=== PATIENT | female | born 1985 | race Asian ===

== ENCOUNTER 2016-05-18 15:40 | Emergency (ER) | payer OTHER ==
[~2016-05-18] VITALS: Ht 162.6 cm; Wt 74.4 kg
[~2016-05-18 15:40] MED LIST: BENADRYL ALLERG25 MG PO; BENADRYL50 MG PO; BUPROPION XL150 MG PO; GABAPENTIN100 MG PO; MILK OF MAGN PO; MOTRIN600 MG PO; PREDNISONE10 MG PO; PROAIR HFA8.5 GM IH; QUETIAPINE FUMA50 MG PO; ZITHROMAX Z-PA250 MG PO; ZOFRAN4 MG PO
[2016-05-18] MEDS ORDERED: PREDNISONE10 M1 PO (17:02)
[2016-05-18] MEDS ORDERED: VENTOLIN HFA18 GM IH (17:02)
[2016-05-18] MEDS ORDERED: TESSALON PERLE100 MG PO (17:02)
[2016-05-18 17:15] VITALS: BP 126/82
== END 2016-05-18 17:16 | disposition home or self-care (01) ==
LOC: EXP 15:40 → EME 15:40 → EXP 17:16
DX: J20.9 Acute bronchitis, unspecified (principal); R06.2 Wheezing; F17.200 Nicotine dependence, unspecified, uncomplicated; Z88.0 Allergy status to penicillin
CPT/HCPCS: 94640; 99281; 99283

== ENCOUNTER 2017-09-15 06:51 | Emergency (ER) | payer OTHER ==
[~2017-09-15] VITALS: Ht 162.6 cm; Wt 72.5 kg
[~2017-09-15 06:51] MED LIST changes: +PREDNISONE10 M1 PO; +TESSALON PERLE100 MG PO; +VENTOLIN HFA18 GM IH
[2017-09-15] MEDS ORDERED: KETOROLAC TROME10 MG PO (07:17)
[2017-09-15 07:51] LABS: HEMATOCRIT 37.4 % (36.0-46.0); HEMOGLOBIN 13.1 G/DL (11.9-15.5); MCH 30.8 PG (29.0-34.0); PLATELET COUNT 291 K/uL (156-360); RBC DIS.WIDTH-CV 11.7 % (11.8-14.6); RBC DIS.WIDTH-SD 37.5 % (39-53); RED BLOOD COUNT 4.25 M/uL (3.80-5.20); WHITE BLOOD COUNT 8.6 K/uL (4.1-10.2)
[2017-09-15 07:58] LABS: APPEARANCE CLEAR ((CLEAR)); BILIRUBIN NEGATIVE; BLOOD NEGATIVE; COLOR YELLOW ((YELLOW)); GLUCOSE (STRIP) NEGATIVE; KETONES NEGATIVE; LEUKOCYTES NEGATIVE; NITRITE NEGATIVE; PROTEIN (STRIP) NEGATIVE; SPECIFIC GRAVITY 1.024 (1.000-1.030); UCUL ADDED? NO; UROBILINOGEN 0.2 MG/DL (0.2-1.0)
[2017-09-15 07:59] LABS: ALBUMIN 4.3 g/dL (3.2-4.8); CHLORIDE 107 mEq/L (99-109); POTASSIUM 3.7 mEq/L (3.7-5.4); SODIUM 139 mEq/L (136-147)
[2017-09-15 08:01] LABS: GLUCOSE 98 mg/dL (70-99); TOTAL PROTEIN 6.9 g/dL (6.4-8.3)
[2017-09-15 08:03] LABS: TOTAL BILIRUBIN 0.4 mg/dL (0.0-1.0)
[2017-09-15 08:05] LABS: ALKALINE PHOSPHATASE 106 IU/L (3-129); CREATININE 0.8 mg/dL (0.6-1.3); GFR ESTIMATE (CALCULATED) > 59 mL/min/
[2017-09-15 08:06] LABS: UREA NITROGEN (BUN) 12 mg/dL (9-23)
[2017-09-15 08:07] LABS: AST (GOT) 15 IU/L (2-34)
[2017-09-15 08:08] LABS: ALT (GPT) 19 IU/L (3-49); LIPASE 242 U/L (1.0-51.0)
[2017-09-15 08:19] LABS: QUANTITATIVE HCG < 4.0 MIU/ML
[2017-09-15] MEDS ORDERED: FIORICET 50-301 EAC1 PO (09:41)
[2017-09-15] MEDS ORDERED: OMEPRAZOLE40 M1 PO (09:41)
[2017-09-15 10:39] VITALS: BP 107/78
== END 2017-09-15 10:39 | disposition home or self-care (01) ==
LOC: EME 06:51
PROVIDERS: Physician Assistant
DX: R10.13 Epigastric pain (principal); K21.9 Gastro-esophageal reflux disease without esophagitis; Z90.49 Acquired absence of other specified parts of digestive tract; Z87.19 Personal history of other diseases of the digestive system; Z88.0 Allergy status to penicillin; Z88.8 Allergy status to other drugs, medicaments and biological substances; F17.200 Nicotine dependence, unspecified, uncomplicated
CPT/HCPCS: 74177; 80053; 81003; 83690; 84702; 85027; 99281; 99284; J2405; J7030; S0028